=== PATIENT | female | born 2000 | race Caucasian/White ===

== ENCOUNTER 2020-10-04 17:04 | Observation (INO) | payer OTHER, SELFPAY ==
[2020-10-04 17:30] VITALS: BP 106/58; PULSE 88
[2020-10-04 17:45] VITALS: BP 101/61; PULSE 92
[2020-10-04 18:00] VITALS: BP 106/63; PULSE 91
[2020-10-04 18:06] LABS: Add Urine Microscopic? YES; Amorphous Sediment Urine Few; Appearance Urine Cloudy (Clear); Bacteria Urine Trace /hpf; Bilirubin Urine Negative (Negative); Blood Urine 1+ (Negative); Color Urine Yellow (Yellow); Glucose Urine UA Negative (Negative); Ketones Urine Negative (Negative); Leukocyte Esterase Ur 1+ LEU/UL (NEGATIVE); Mucus Urine Rare /lpf; Nitrate Urine Negative (Negative); Protein Urine Negative (Negative); Specific Grav Ur 1.015 (1.001-1.035); Squamous Epithelial Cell Urine Many /hpf (Few); Urobilinogen Urine Negative mg/dL (<2.0)
[2020-10-04 18:15] VITALS: BP 104/59; PULSE 82
--- NOTE | 2020-10-04 18:39 | P.PNOB_ITS ---
OB - Triage/Final Diagnosis Evaluation Laboratory results: Laboratory Tests 10/04/20 17:53 Urine Color Yellow Urine Appearance Cloudy H Urine pH 7.0 Ur Specific [place] 1.015 Urine Protein Negative Urine Glucose (UA) Negative Urine Ketones Negative Ur Blood (Man) 1+ H Urine Nitrate Negative Urine Bilirubin Negative Urine Urobilinogen Negative Ur Leukocyte Esterase 1+ H Urine RBC 6-10 H Urine WBC 7-9 H Ur Squamous Epith Cells Many H Amorphous Sediment Few H Urine Bacteria Trace Urine Mucus Rare Vital signs: Vital Signs - 24 hr 10/04/20 17:30 10/04/20 17:45 10/04/20 18:00 Pulse Rate 88 92 91 Blood Pressure 106/58 L 101/61 106/63 10/04/20 18:15 Pulse Rate 82 Blood Pressure 104/59 L Final Diagnosis (1) Abdominal pain: Code(s): R10.9 - Unspecified abdominal pain Status: Acute
== END 2020-10-04 18:40 | disposition home or self-care (01) ==
PROVIDERS: Admitting Provider Obstetrics & Gynecology; PCP Physician Assistant; Visit Provider Obstetrics & Gynecology
DX: O26.899 Other specified pregnancy related conditions, unspecified trimester (principal); R10.9 Unspecified abdominal pain; Z3A.00 Weeks of gestation of pregnancy not specified
CPT/HCPCS: 81001; 87086; G0378; G0379

== ENCOUNTER 2020-12-21 07:11 | Inpatient (IN) | payer BC, OTHER, SELFPAY ==
--- NOTE | 2020-12-20 11:26 | PM.IMHP ---
H&P: [facility] History of Present Illness Date/Time: 12/20/20 11:26 Chief Complaint: elective induction of labor in Term Narrative: Maris Villarreal is a 20 year old female 20 y/o with a history of a bicornuate uterus with prior successful vaginal delivery, BV, TV,GERD, GBS, UTI and anxiety/depression presenting for IOL at 39.3w. I explained her condition procedure and risks involved using Cervidil for 12 hours then Pitocin per protocol. I explained maternal or indications for delivery with risk involved including but not limited to bleeding infection injury to bladder bowel baby pelvic vessels DVT pneumonia wound infections UTI risk of anesthesia she understands all this and accepts and agrees to proceed. YES to epidural, baby boy, yes to circumcision,try to , private inquiry agent Dr. Lee or Mariah Fermin in [facility] undecided Review of Systems Review of Systems: All systems reviewed & are unremarkable except as noted in HPI and below Constitutional: Constitutional: Reports no additional constitutional complaints Eyes: Eyes: Reports no additional eye complaints ENT: Reports system reviewed and no additional complaints, except as documented Cardiovascular: Cardiovascular: Reports no additional cardiovascular complaints Respiratory: Respiratory: Reports no additional respiratory complaints Gastrointestinal: Gastrointestinal: Reports no additional gastrointestinal complaints Genitourinary: Genitourinary: Reports no additional female genitourinary complaints Musculoskeletal: Musculoskeletal: Reports no additional musculoskeletal complaints Integumentary/Breasts: Skin/Breast: Reports system reviewed and no additional complaints, except as docu Neurologic: Reports system reviewed and no additional complaints, except as documented Psychiatric: Psychiatric: Reports no additional psychiatric complaints Endocrine: Endocrine: Reports no additional endocrine complaints Hematologic/Lymphatic: Hematologic/Lymphatic: Reports no additional hematologic/lymphatic complaints Allergic/Immunologic: Allergic/Immunologic: Reports no additional allergic/immunologic complaints [facility] Past Medical History Medical History (Updated 12/20/20 @ 11:49 by Gerardo Maynard MD) Bicornate uterus complicating BV (bacterial vaginosis) HARSH (generalized anxiety disorder) GBS (group B Streptococcus carrier), +RV culture, currently History of hysterosalpingogram MDD (major depressive disorder) Smoker Staphylococcal infection Urogenital trichomoniasis UTI in Vaginal delivery [id number] # fetuses1 Fetus 1Full Term M 7 lbs 1 oz Vaginal Only Gestational age39.5 weeks.day Anesthesia[facility] Surgical History (Updated 12/20/20 @ 11:44 by Gerardo Maynard MD) History of tonsillectomy Family History Family History (Updated 12/20/20 @ 11:45 by Gerardo Maynard MD) Grandparent Hypertension Epilepsy Sibling ADD (attention deficit disorder) Other Acute myocardial infarction Diabetes mellitus Social History Social History (Updated 12/20/20 @ 11:46 by Gerardo Maynard MD) Smoking status: Former smoker Tobacco type: cigarettes Second hand tobacco smoke exposure: Yes Alcohol intake: never Substance use: never Substance use type: does not use Living arrangements: with family Occupation/Education: unemployed Gender identity (if verbalized by the patient): Female Sexual Orientation (if Verbalized by the Patient): Straight or Heterosexual Spiritual care concerns: No Agree to blood products: Yes Meds Home Medications and Allergies Home Medications Medication Instructions Recorded Confirmed Type folic acid 2 mg PO BID 12/03/20 12/03/20 History prenat.vits,brooke,[id number] 1 tablet PO DAILY 12/03/20 12/03/20 History [Prena
--- NOTE | 2020-12-20 11:34 | WPDHPUPDATE1 ---
History and Physical Update Update Date/Time: 12/21/20 05:34 History and Physical has been reviewed, including an updated exam of the patient. There are NO changes in the patient's condition. Risks, benefits, and alternatives have been discussed and questions answered. Patient agrees to proceed with procedure. Maris Villarreal is a 20 year old female 20 y/o with a history of a bicornuate uterus with prior successful vaginal delivery, BV, GERD, GBS, and depression presenting for IOL at 39.3w. I explained her condition procedure and risks involved using Cervidil for 12 hours then Pitocin per protocol. I explained maternal or indications for delivery with risk involved including but not limited to bleeding infection injury to bladder bowel baby pelvic vessels DVT pneumonia wound infections UTI risk of anesthesia she understands all this and accepts and agrees to proceed. YES to epidural, baby boy, yes to circumcision,try to , boom tender Dr. Lee or Mariah Fermin in [facility] undecided
--- NOTE | 2020-12-20 11:36 | P.HP_ITS ---
Obstetrics - Admit Note Admission Note: record reviewed. No pertinent additions to the history and/or any subsequent changes in the physical findings that are not consistent with the expected course of the were found. Additions to the history and/or subsequent changes in the physical findings follow. None. Maris Villarreal is a 20 year old female 20 y/o with a history of a bicornuate uterus with prior successful vaginal delivery, BV, GERD, GBS, and depression presenting for IOL at 39.3w. I explained her condition procedure and risks involved using Cervidil for 12 hours then Pitocin per protocol. I explained maternal or indications for delivery with risk involved including but not limited to bleeding infection injury to bladder bowel baby pelvic vessels DVT pneumonia wound infections UTI risk of anesthesia she understands all this and accepts and agrees to proceed. YES to epidural, baby boy, yes to circumcision,try to , commissioning engineer Dr. Lee or Mariah Fermin in [facility] undecided
[2020-12-21] VITALS (43 sets, daily range): BP systolic 86–129; BP diastolic 40–86; PULSE 71–103; TEMP 36.6–37; O2SAT 97–99; BMI 32.3
[2020-12-21 08:34] LABS: Basophils Absolute Auto 0.1 K/mm3 (0.0-0.1); Basophils Percent Auto 0.3 % (0.2-1.2); Eosinophils Absolute Auto 0.3 K/mm3 (0-0.3); Eosinophils Percent Auto 1.7 % (0-4.4); Hematocrit 32.8 % (37.0-47.0); Hemoglobin 10.4 g/dL (12.0-15.0); Immature Granulocyte Percent A 0.6 % (0-0.5); Lymphocytes Absolute Auto 2.92 K/mm3 (0.9-3.2); Lymphocytes Percent Auto 16.8 % (18.3-44.2); Mean Corpuscular HGB Conc 31.7 g/dl (32-36); Mean Corpuscular Hemoglobin 26.1 pg (26-34); Mean Corpuscular Volume 82.2 fl (80-100); Monocytes Absolute Auto 1.1 K/mm3 (0.1-0.6); Monocytes Percent Auto 6.4 % (2.6-8.5); Neutrophils Absolute Auto 12.9 K/mm3 (1.3-6.7); Neutrophils Percent Auto 74.2 % (45.5-73.1); Platelet Count Result 234 k/mm3 (150-375); Red Blood Count 3.99 M/mm3 (4.2-5.4); Red Cell Distribution Width 14.2 % (11.5-14.5); White Blood Count 17.4 K/mm3 (4.5-10.0)
[2020-12-21] MEDS: LACTATED RINGERS 1,000 ML 125 ML IV CONT (08:45)
[2020-12-21] MEDS: DINOPROSTONE 10 MG VAG INSERT VAGINAL (08:45)
[2020-12-21] MEDS: AMPICILLIN 2 GM/NS 100 ML 2 GM/100 ML BAG IVPB (08:46)
--- NOTE | 2020-12-21 08:55 | PM.OBPNLAB ---
Pain Control Date/time seen: 12/21/20 08:55 Comments: iol-cervidil Pelvic Exam Dilation (cm): 0 Effacement (%): 0 station: -3 Amniotic membrane status: Intact Contractions Monitor mode: External Contraction pattern: Irregular Contraction intensity: Mild Status status: Category l Assessment and Plan Assessment: induction ongoing Plan: continuous present management and other (gbs rx)
--- NOTE | 2020-12-21 09:21 | WPDANESEPP ---
Anes - Eval Pre Procedure Procedure: labor epidural Date/Time: 12/21/20 09:21 Preop Diagnosis: labor pain Pre Op Diagnosis: Induction of Labor Patient Data Age: 20 Gender: F Height: 5 ft 7 in Weight: 93.6 kg Last Vital Signs Pulse 89 12/21/20 09:00 BP 99/55 L 12/21/20 09:00 Allergies Allergy/AdvReac Type Severity Reaction Status Date / Time latex Allergy Itching Verified 12/03/20 12:42 nitrofurantoin Allergy Headache Verified 12/03/20 12:42 [From Macrobid] Home Medications Medication Instructions Recorded Confirmed Type folic acid 2 mg PO BID 12/03/20 12/03/20 History prenat.vits,brooke,[id number] 1 tablet PO DAILY 12/03/20 12/03/20 History [ #2] progesterone micronized 200 mg PO BID 12/03/20 12/03/20 History Laboratory Tests 12/21/20 12/21/20 08:18 08:18 WBC 17.4 K/mm3 H K/mm3 (4.5-10.0) RBC 3.99 M/mm3 L M/mm3 (4.2-5.4) Hgb 10.4 g/dL L g/dL (12.0-15.0) Hct 32.8 % L % (37.0-47.0) MCV 82.2 fl fl (80-100) MCH 26.1 pg pg (26-34) MCHC 31.7 g/dl L g/dl (32-36) RDW 14.2 % % (11.5-14.5) Plt Count 234 k/mm3 k/mm3 (150-375) MPV 12.0 fl H fl (7.4-10.4) Immature Gran % (Auto) 0.6 % H % (0-0.5) Neut % (Auto) 74.2 % H % (45.5-73.1) Lymph % (Auto) 16.8 % L % (18.3-44.2) [place] % (Auto) 6.4 % % (2.6-8.5) Eos % (Auto) 1.7 % % (0-4.4) Baso % (Auto) 0.3 % % (0.2-1.2) Lymph # (Auto) 2.92 K/mm3 K/mm3 (0.9-3.2) [place] # (Auto) 1.1 K/mm3 H K/mm3 (0.1-0.6) Eos # (Auto) 0.3 K/mm3 K/mm3 (0-0.3) Baso # (Auto) 0.1 K/mm3 K/mm3 (0.0-0.1) Abs Immat Gran (auto) 0.10 K/mm3 H K/mm3 (0.00-0.031) Absolute Neuts (auto) 12.9 K/mm3 H K/mm3 (1.3-6.7) Absolute Nucleated RBC 0.0 K/mm3 K/mm3 (0.0-0.012) Nucleated RBC % 0.0 % % (0.0-0.2) RPR Pending Patient hx anesthesia problems: none Family hx anesthesia problems: none PMFSH Past Medical History Medical History (Updated 12/20/20 @ 11:49 by Gerardo Maynard MD) Bicornate uterus complicating BV (bacterial vaginosis) HARSH (generalized anxiety disorder) GBS (group B Streptococcus carrier), +RV culture, currently History of hysterosalpingogram MDD (major depressive disorder) Smoker Staphylococcal infection Urogenital trichomoniasis UTI in Vaginal delivery [id number] # fetuses1 Fetus 1Full Term M 7 lbs 1 oz Vaginal Only Gestational age39.5 weeks.day AnesthesiaReg[facility] Surgical History (Updated 12/20/20 @ 11:44 by Gerardo Maynard MD) History of tonsillectomy Family History Family History (Updated 12/20/20 @ 11:45 by Gerardo Maynard MD) Grandparent Hypertension Epilepsy Sibling ADD (attention deficit disorder) Other Acute myocardial infarction Diabetes mellitus Social History Social History (Updated 12/20/20 @ 11:46 by Gerardo Maynard MD) Smoking status: Former smoker Tobacco type: cigarettes Second hand tobacco smoke exposure: Yes Alcohol intake: never Substance use: never Substance use type: does not use Living arrangements: with family Occupation/Education: unemployed Gender identity (if verbalized by the patient): Female Sexual Orientation (if Verbalized by the Patient): Straight or Heterosexual Spiritual care concerns: No Agree to blood products: Yes Exam Day of Procedure 12/21/20 09:21
--- NOTE | 2020-12-21 09:21 | LDADM ---
This patient, Sarkis Villarreal, was admitted to Labor/Delivery/Recovery 108 on 12/21/20 at 07:11. Plans for labor, pain management and were discussed with patient. Patient/family oriented to hospital policies and general routines including ID bracelet, bed and alarms, visiting hours, pain management, procedures, bathroom and other care routines, personal items, smoking policy, room service/diet and guest tray routines, security routines, call light, and visiting hours. Patient/Family are encouraged to report perceived risks to care and to ask questions if they do not understand what they are told or what they should do. See OBIX for further documentation.
[2020-12-21] MEDS: AMPICILLIN 1 GM/NS 50 ML 1 GM/50 ML BAG IVPB ×3 (12:07→20:40)
--- NOTE | 2020-12-21 16:37 | PM.OBPNLAB ---
Pain Control Date/time seen: 12/21/20 16:37 Pain control: tolerating well Comments: Cervidil due to come out at 20:45 a.m. then started on Pitocin Pelvic Exam Dilation (cm): 1 Effacement (%): 50 station: -3 Amniotic membrane status: Intact Contractions Monitor mode: External Contraction pattern: Irregular Contraction intensity: Mild Status status: Category l Assessment and Plan Assessment: induction ongoing Plan: continuous present management Comments: Cervidil due to come out at 8:45 p.m. and then was started on Pitocin
[2020-12-21] MEDS: OXYTOCIN 30 UNITS/NS 500 ML 30 UNITS/500 ML BAG IV CONT (20:03)
[2020-12-22] VITALS (47 sets, daily range): BP systolic 88–132; BP diastolic 45–81; PULSE 45–104; RESP 16–18; TEMP 36.4–37.4; O2SAT 95–100
[2020-12-22] MEDS: LACTATED RINGERS 1,000 ML 125 ML IV CONT
--- NOTE | 2020-12-22 00:27 | PM.OBPNLAB ---
Pain Control Date/time seen: 12/21/20 20:27 Pain control: tolerating well Comments: cervidil out Pelvic Exam Dilation (cm): 3 Effacement (%): 50 station: -3 Amniotic membrane status: Intact Contractions Monitor mode: External Contraction frequency: 5 Contraction duration: 45 Contraction pattern: Regular Contraction phase: Contraction Contraction intensity: Moderate Status status: Category l Assessment and Plan Assessment: active labor and induction ongoing Plan: continuous present management and begin patient augmentation Comments: pitocin then epidural
--- NOTE | 2020-12-22 00:29 | PM.OBPNLAB ---
Pain Control Date/time seen: 12/22/20 00:29 Pain control: tolerating well and epidural Pelvic Exam Dilation (cm): 5 Effacement (%): 80 station: -3 Amniotic membrane status: Bulging Comments: AROM copious amount clear fluid IUPC placed after placing fernandez catheter the nurse found hand presenting at cervix I confirm COMPOUND presentation hand in front of vertex and I was unable to reduce it at 5 cm dilation in fact the hand is trying to protrude through the cervical os! Contractions Monitor mode: Internal (iupc external fht) Contraction frequency: 5 Contraction duration: 45 Contraction pattern: Regular Contraction phase: Contraction Contraction intensity: Moderate Status status: Category l Assessment and Plan Assessment: active labor and other (COMPOUND HAND PRESENTATION) Plan: Comments: I explained condition procedure and risks involved Pt understands accepts and agrees to proceed
--- NOTE | 2020-12-22 01:41 | PM.PROC ---
Procedure Note - Detailed Date of procedure: 12/22/20 Pre-op diagnosis: Induction of Labor Term Bicornuate uterus GBS Compound presentation with hand in front of vertex Post-op diagnosis: same ( delivered viable male ) Procedure performed: primary low-transverse section with delivery of viable male infant and placenta Description of procedure: informed consent obtained patient taken to the operating room with epidural in place and dosed for section. Gill catheter was inserted the abdomen was prepped and the patient was draped in the usual fashion. A time-out was then performed. Antibiotic prophylaxis was given Ancef 2 g in addition to the previous doses for GBS prophylaxis. After testing for adequate anesthesia a Pfannenstiel incision was then made to the skin and then the abdomen was opened in layers using cautery with hemostasis excellent. The fascia was entered bilaterally and then undermined superior and inferior and then the rectus muscles were in the midline. The peritoneum was entered with electrocautery and extended bilateral a transverse incision was then made to the uterus and a Peon was used to separate myometrium. Digital dissection of the myometrial incision was followed by decompressing the compound presentation the hand had made it through the cervical os and then I was able to deliver the vertex via the abdominal incision with fundal pressure. Shoulders were delivered without difficulty baby was delivered and placed on the maternal abdomen where the nose and throat were bulb suction there was spontaneous respirations and cry the cord was then clamped and cut and the was handed to the nursery nurses in attendance. scores 8 and 9 at 1 and 5 minutes. The baby weighed 7 lb 11 oz a boy named Elroy. the cord gases were obtained and cord blood was obtained and then the placenta was then delivered intact with a three-vessel cord and sent to pathology. The uterus contracted well with Pitocin given intravenously 10 units. Blood clots membranes removed from the intrauterine cavity and both uterine horns were identified upon physical exam and hemostatic. The uterine incision was then repaired in 2 layers after the uterus was externalized with 0 Vicryl in a running interlocking fashion the 2nd being an imbricating stitch hemostasis excellent. Blood clots removed from the cul-de-sac both lateral gutters with irrigation being performed. The sponge needle instrument counts correct the uterus was returned to the peritoneal cavity and then the anterior peritoneum and rectus muscles were reapproximated with 0 Vicryl suture and a running fashion. The fascia was then closed with 2. Quill SRS system bilaterally with excellent approximation of the fascia. Hanna's fascia was reapproximated with 3 0 plain in a running fashion and then the skin was closed with absorbable vilma in a sequential fashion and then Dermabond was used to the skin and a Mepilex dressing was placed over the incision. The cyst counts were correct complications none specimens were sent to pathology the baby was taken to the nursery in stable condition the patient was taken to the recovery room stable condition Anesthesia: epidural Surgeon: Gerardo Maynard MD [employer] Installer: neurosurgical physician assistant x2 Estimated blood loss (mL): 560 IV fluids (mL): 2,000 Urine output (mL): 200 Drains: No Packing: No Pathology: yes ( placenta, cord gases, cord blood) Complications: None Condition: stable Disposition: floor Findings: bicornuate uterus hemostasis excellent tubes and ovaries normal upper abdomen clean Baby boy delivered at 1:08 a.m. spontaneous respirations and cry no observed abnormalities in the examination scores 8 9 weight 7 lb 11 oz boy's name is Elroy with the normal transition stable in the nursery Counts correct complications none
[2020-12-22] MEDS: KETOROLAC 30 MG/ML VIAL (*BKC) IV PUSH ×3 (01:45→16:23)
--- NOTE | 2020-12-22 01:55 | PM.OBPRVD ---
OB - Delivery Note Procedure Delivery date: 12/22/20 Procedure: Procedures Operation Date: 12/22/20 00:30 primary low-transverse section with delivery of viable male and placenta events: Labor Induction Intrapartal events: Other ( compound presentation with hand coming before the vertex into and through the cervical os) Induction method: per pitocin protocol and per cervidil protocol Delivery augmentation: rupture of membranes Delivery monitor: external FHT and internal uterine Route of delivery: Episiotomy description: None Laceration Description: None Specimen: Yes Quantitative Blood Loss (ml): 560 Anesthesia type: Epidural Disposition: floor Complications: none Narrative: see operative note [place] Baby Date of : 12/22/20 Time of : 01:08 Weeks of gestation at delivery: 39 Infant gender: Male ( Elroy) Weight (pounds): 7 Weight (ounces): 11 presentation: compound (hand) Placenta delivery description: Manual Removal and Normal Configuration cord vessel description: 3 Vessels score one minute: 8 score five minutes: 9 Narrative: see operative note
[2020-12-22] MEDS: OXYTOCIN 30 UNITS/NS 500 ML 30 UNITS/500 ML BAG 125 UNITS IV CONT (02:35)
[2020-12-22] MEDS: fentaNYL CITRATE INJ (*CRX) 100 MCG/2 ML VIAL 50 MCG IV PUSH (04:09)
--- NOTE | 2020-12-22 04:35 | OBPPTRN ---
Patient transferred to post room #285 via stretcher. Support person present. Oriented to unit, room, information board, rooming in, admission packet and security measures. Patient verbalizes understanding.
--- NOTE | 2020-12-22 05:09 | SUR.PHASEI ---
0425- Herman care done, chux pad, herman pads, and gown changed. Warm blankets applied. Pt states her pain is much better at this time. Gill catheter draining properly, SCD's in place. Belongings gathered; pt, , and belongings taken up to PP floor. Pt taken via stretcher.
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
[2020-12-22] MEDS: DEXTROSE 5%/0.45% SOD CHL 1,000 ML 125 ML IV CONT (08:10)
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
--- NOTE | 2020-12-22 13:31 | P.PNOB_ITS ---
OB - PN: Subj Subjective Date/time seen: 12/22/20 13:31 Patient comments: no complaints, pain well controlled, tolerating diet and flatus present [place] baby status: doing well [place] feeding status: exclusively bottle feeding OB - PN: Obj Data Labs CBC & Chem 7: 12/21/20 08:18 OB - PN A/P Assessment and Plan (1) Term delivered: Code(s): O80 - Encounter for full-term uncomplicated delivery Status: Acute (2) Delivery by section: Status: Acute (3) Compound presentation of fetus palpable vaginally: Code(s): O32.6XX0 - Maternal care for compound presentation, not applicable or unspe cified Status: Acute (4) Bicornate uterus complicating : Code(s): O34.00 - Maternal care for unspecified congenital malformation of uterus, unspecified trimester; Q51.3 - Bicornate uterus Status: Acute Plan day: 0 Plan: routine care, discharge home and follow up 6 weeks Time Spent With Patient Time: Total time spent is greater than 50% in coordination of care (as documented) at patient's floor/unit and/or counseling patient: Time with patient: less than 15 minutes Review of Systems Review of Systems: All systems reviewed & are unremarkable except as noted in HPI and below Exam Const: General: cooperative, healthy appearing, comfortable, no acute distress, well developed, alert, awake and Physically active Nutritional Appearance: average body habitus Orientation/consciousness: patient oriented x3 Limitations: no limitations HENMT: Head: normal to inspection Eyes: General: appearance normal, both eyes and all related structures Neck: Neck: normal visual inspection Chest: Chest palpation & inspection: normal inspection of the chest Breast/axilla inspection: normal inspection of the breasts Resp: Effort & Inspection: normal respiratory effort Auscultation: clear to auscultation bilaterally Cardio: Palpation: normal PMI Rate: regular rate Rhythm: regular rhythm Heart sounds: S1 normal heart sound present and S2 normal heart sound present GI: Inspection: normal to inspection and incision (Dressing dry and intact) GI Palp: Yes Soft to palpation Percussion: Yes normal to percussion Auscultation: normal bowel sounds : External Female Exam: normal external appearance Urinary Catheter: Urinary Catheter: patent and draining and urine clear Back/Spine/Pelvis: Back: no CVA tenderness Skin: General skin exam: normal color Neuro: General: patient oriented x3, tone normal, moves all extremities, Normal light touch and pain sensation and no meningeal signs Extrem: General: normal to inspection, full ROM, no clubbing, cyanosis or dipak ma and no calf tenderness Psych: Appearance: grossly normal Mental Status: mental status grossly normal Speech and movement: Normal speech and movement present Affect: normal affect Attitude: cooperative Thought process: Normal thought process present Thought content: Yes Normal thought content present Insight: Good insight present (Psych) Judgement: Good judgement present (Psych)
[2020-12-22] MEDS: MULTIVIT/MIN/PREN/FOL AC/IRON TABLET 1 TAB PO (16:23)
[2020-12-22] MEDS: DOCUSATE SODIUM 100 MG CAPSULE PO (19:17)
[2020-12-22] MEDS: HYDROcodone/acetaminophen (*CRX) 5-325 MG TABLET 1 TAB PO (20:02)
[2020-12-22] MEDS: IBUPROFEN 600 MG TABLET PO (21:33)
[2020-12-23] MEDS: IBUPROFEN 600 MG TABLET PO ×2 (04:21→11:07)
[2020-12-23 04:34] LABS: Basophils Percent Auto 0.3 % (0.2-1.2); Eosinophils Absolute Auto 0.2 K/mm3 (0-0.3); Eosinophils Percent Auto 0.9 % (0-4.4); Hematocrit 26.2 % (37.0-47.0); Hemoglobin 8.1 g/dL (12.0-15.0); Immature Granulocyte Absolute 0.08 K/mm3 (0.00-0.031); Immature Granulocyte Percent A 0.5 % (0-0.5); Lymphocytes Absolute Auto 2.68 K/mm3 (0.9-3.2); Mean Corpuscular HGB Conc 30.9 g/dl (32-36); Mean Corpuscular Hemoglobin 25.9 pg (26-34); Mean Corpuscular Volume 83.7 fl (80-100); Mean Platelet Volume 12.6 fl (7.4-10.4); Monocytes Absolute Auto 1.6 K/mm3 (0.1-0.6); Monocytes Percent Auto 10.4 % (2.6-8.5); Neutrophils Absolute Auto 11.2 K/mm3 (1.3-6.7); Neutrophils Percent Auto 70.9 % (45.5-73.1); Platelet Count Result 203 k/mm3 (150-375); Red Blood Count 3.13 M/mm3 (4.2-5.4); Red Cell Distribution Width 14.5 % (11.5-14.5); White Blood Count 15.8 K/mm3 (4.5-10.0)
[2020-12-23] MEDS: POLYSACCHARIDE IRON COMPLEX 150 MG CAPSULE PO (08:17)
[2020-12-23] MEDS: MULTIVIT/MIN/PREN/FOL AC/IRON TABLET 1 TAB PO (08:17)
[2020-12-23] MEDS: DOCUSATE SODIUM 100 MG CAPSULE PO (08:17)
[2020-12-23] MEDS: HYDROcodone/acetaminophen (*CRX) 10-325 MG TABLET 1 TAB PO (08:26)
[2020-12-23] MEDS: SIMETHICONE 80 MG TAB.CHEW PO (08:26)
[2020-12-23 09:19] VITALS: BP 98/52; PULSE 72; RESP 16; TEMP 36.8
--- NOTE | 2020-12-23 09:45 | WPDANLDPN2 ---
Anes-Prog Note L&D Date/Time: 12/23/20 09:45 Comfortable throughout: labor and section Neuraxial method: epidural Epidural/Spinal procedure site: clean & non-tender Neuro status: Neuro function grossly intact. Cardiovascular status: normal Respiratory status: normal Airway patency: baseline Mental status: baseline Post-Op hydration status: normal Vital Signs: Last Vital Signs Temp 36.8 C 12/23/20 09:19 Pulse 72 12/23/20 09:19 Resp 16 12/23/20 09:19 BP 98/52 L 12/23/20 09:19 Pulse Ox 98 12/22/20 23:55 Pain score (VAS): no complaints I/O: Intake & Output 12/22/20 12/23/20 12/23/20 23:59 07:59 15:59 Intake Total 400 Output Total 900 Balance -500 Post-procedural complaints: none Patient feedback: Patient satisfied with anesthetic care.
--- NOTE | 2020-12-23 09:46 | WPDANLDNPN2 ---
Anes-Prog Note L&D-Neuraxial Date/Time: 12/23/20 09:46 Neuraxial medications: epidural PF morphine Patient feedback: Patient satisfied with post-operative pain management.
[2020-12-23 11:00] LABS: Rapid Plasma Reagin Non-Reactive (NonReactive)
[2020-12-23] MEDS: HYDROcodone/acetaminophen (*CRX) 5-325 MG TABLET 1 TAB PO (11:07)
--- NOTE | 2020-12-23 13:03 | PM.OBDSVD ---
DS: Admitting Diagnosis Admitting Diagnosis Admitting Diagnosis: term Elective induction of labor Bicornuate uterus GBS carrier Compound presentation hand in front of vertex into cervical os DS: Discharge Diagnosis Discharge Diagnosis (1) Term delivered: Code(s): O80 - Encounter for full-term uncomplicated delivery Status: Acute (2) Compound presentation of fetus palpable vaginally: Code(s): O32.6XX0 - Maternal care for compound presentation, not applicable or unspecified Status: Acute (3) Encounter for elective induction of labor: Code(s): Z34.90 - Encounter for supervision of normal , unspecified, unspecified trimester Status: Acute (4) GBS (group B Streptococcus carrier), +RV culture, currently : Code(s): O99.820 - Streptococcus B carrier state complicating Status: Acute (5) Bicornate uterus complicating : Code(s): O34.00 - Maternal care for unspecified congenital malformation of uterus, unspecified trimester; Q51.3 - Bicornate uterus Status: Acute OB - DS: Summary Hospital Course Time spent discussing smoking cessation with patient: 3 to 10 minutes OB Procedures : Ultrasound OB Procedures Intrapartum: ( primary) low cervical, transverse and GBS prophylaxis OB Procedures: : Antibiotics Peripartum Data Infant Delivery Method: Section ( primary low-transverse) Laceration Description: None Episiotomy description: None Procedures: Procedures Operation Date: 12/22/20 00:30 primary low-transverse section with delivery of viable male and placenta complications: none 1: Gender: Male (Elroy) Disposition of : home Status at Discharge Functional status at discharge: independent ambulation Overall status at discharge: patient is back to baseline Time Spent with Patient Time attestation: Total time spent providing and/or coordinating discharge services: Time spent: Less than 30 minutes Exam Const: General: cooperative, healthy appearing, comfortable, no acute distress, well developed, alert, awake and Physically active Nutritional Appearance: average body habitus and well nourished Orientation/consciousness: patient oriented x3 Limitations: no limitations HENMT: Head: normal to inspection Eyes: General: appearance normal, both eyes and all related structures Neck: Neck: normal visual inspection and full ROM Chest: Chest palpation & inspection: normal inspection of the chest Breast/axilla inspection: normal inspection of the breasts Resp: Effort & Inspection: normal respiratory effort Auscultation: clear to auscultation bilaterally Cardio: Palpation: normal PMI Rate: regular rate Rhythm: regular rhythm Heart sounds: S1 normal heart sound present and S2 normal heart sound present GI: Inspection: normal to inspection and incision ( dry and intact) GI Palp: Yes Soft to palpation Auscultation: normal bowel sounds : External Female Exam: normal external appearance Bimanual exam- vagina & uterus: non-tender Urinary Catheter: Urinary Catheter: urine clear Back/Spine/Pelvis: Back: no CVA tenderness Skin: General skin exam: normal color Neuro: General: patient oriented x3, gait normal, tone normal, moves all extremities, Normal light touch and pain sensation, no meningeal signs and no focal motor deficits Extrem: General: normal to inspection, full ROM, no clubbing, cyanosis or edema and no calf tenderness Psych: Appearance: grossly normal Mental Status: mental status grossly normal Speech and movement: Normal speech and movement present Affect: normal affect Attitude: cooperative Thought content: Yes Normal thought content present Insight: Good insight present (Psych) Judgement: Good judgement present (Psych) DS: Data Data Completed and Pending Labs on day of discharge: Labs from [facility]
[2020-12-24 10:48] VITALS: BP 103/56; PULSE 87; RESP 20; TEMP 36.6; O2SAT 100
== END 2020-12-23 11:45 | disposition home or self-care (01) | DRG 788 ==
LOC: ANHLDR 12-22 02:15 → ANHOB2 12-22 04:41
PROVIDERS: Admitting Provider Obstetrics & Gynecology; Family Provider Pediatrics Adolescent Medicine; PCP Physician Assistant; Visit Provider Obstetrics & Gynecology
PROC: 10D00Z1 Extraction of Products of Conception, Low, Open Approach (ICD-10-PCS; CPT 59514; principal; 2020-12-22 00:30)
DX: O34.03 Maternal care for unspecified congenital malformation of uterus, third trimester (principal); Q51.3 Bicornate uterus; O99.824 Streptococcus B carrier state complicating childbirth; O32.6XX0 Maternal care for compound presentation, not applicable or unspecified; O32.2XX0 Maternal care for transverse and oblique lie, not applicable or unspecified; Z3A.39 39 weeks gestation of pregnancy; Z37.0 Single live birth; Z87.891 Personal history of nicotine dependence
CPT/HCPCS: 36415; 85025; 86592; 86850; 86900; 86901; 88307; A9270; J0131; J0290; J1885; J2175; J2274; J2405; J2590; J2795; J3010; J7120

== ENCOUNTER 2023-11-10 16:55 | Observation (INO) | payer BC, MEDICAID, SELFPAY ==
[2023-11-10] VITALS (9 sets, daily range): BP systolic 98–109; BP diastolic 55–65; PULSE 78–93; BMI 24.0
--- NOTE | 2023-11-10 17:22 | OBADM ---
This patient, Sarkis Villarreal, admitted to the OB room [facility] Post [facility] for observation. Patient/family oriented to hospital policies and general routines including ID bracelet, bed and alarms, visiting hours, pain management, procedures, bathroom and other care routines, personal items, smoking policy, room service/diet, and visiting hours. Patient/Family are encouraged to report perceived risks to care and to ask questions if they do not understand what they are told or what they should do.
--- NOTE | 2023-11-10 17:51 | PC.NURSE ---
1744: Ob paged. 1745: Dr. Zach Lemos responded to page. RN informed OB of patient's complaints of cramping. RN informed OB that patient has marked 3 cramps in a 15 min time frame, blood pressures are normal, and FHT are intermittent but Category 1. Orders to send a UA, and perform a SVE. Orders to discharge patient if urine is clean and cervix is closed and thick.
[2023-11-10 18:28] LABS: Appearance Urine Cloudy (Clear); Bacteria Urine 2+ /hpf; Bilirubin Urine Negative (Negative); Blood Urine Negative (Negative); Color Urine Yellow (Yellow); Glucose Urine UA Negative (Negative); Ketones Urine Negative (Negative); Leukocyte Esterase Ur 1+ LEU/UL (NEGATIVE); Nitrate Urine Negative (Negative); Non Pathogenic Casts 0-2; Protein Urine Negative (Negative); RBC Urine 0-2 /hpf (0-2); Squamous Epithelial Cell Urine Many /hpf (Few); Urobilinogen Urine 0.2 mg/dL (<2.0); WBC Urine 21-50 /hpf (0-3)
[2023-11-10 18:35] LABS: Add Urine Microscopic? YES
--- NOTE | 2023-11-11 12:11 | P.PNOB_ITS ---
OB - Triage/Final Diagnosis Visit Information Date of evaluation: 11/10/23 Reason for evaluation: decreased movement Comments/Additional reasons for admission: I have assessed the risk for this patient, Sarkis Villarreal, and determined that she would benefit from observation care. Evaluation Laboratory results: Laboratory Tests 11/10/23 17:53 Urine Color Yellow Urine Appearance Cloudy H Urine pH 7.0 Ur Specific [place] 1.010 Urine Protein Negative Urine Glucose (UA) Negative Urine Ketones Negative Ur Blood (Man) Negative Urine Nitrate Negative Urine Bilirubin Negative Urine Urobilinogen 0.2 Ur Leukocyte Esterase 1+ H Urine RBC 0-2 Urine WBC 21-50 Ur Squamous Epith Cells Many H Urine Bacteria 2+ H Urine Casts 0-2 Vital signs: Vital Signs - 24 hr 11/10/23 17:18 11/10/23 17:30 11/10/23 17:45 Pulse Rate 88 88 81 Blood Pressure 109/65 98/58 L 102/56 L Blood Pressure [Right Arm] Oxygen Delivery 11/10/23 18:00 11/10/23 18:15 11/10/23 18:30 Pulse Rate 87 78 83 Blood Pressure 107/62 103/55 L 103/58 L Blood Pressure [Right Arm] Oxygen Delivery 11/10/23 18:45 11/10/23 19:00 11/10/23 17:20 Pulse Rate 93 79 Blood Pressure 102/62 108/61 Blood Pressure [Right Arm] Oxygen Delivery Room Air 11/10/23 18:03 Pulse Rate 87 Blood Pressure Blood Pressure [Right Arm] 107/62 Oxygen Delivery
== END 2023-11-10 19:15 | disposition home or self-care (01) ==
PROVIDERS: Admitting Provider Obstetrics & Gynecology; Visit Provider Obstetrics & Gynecology
DX: O36.8120 Decreased fetal movements, second trimester, not applicable or unspecified (principal); O26.892 Other specified pregnancy related conditions, second trimester; R10.9 Unspecified abdominal pain; Z3A.23 23 weeks gestation of pregnancy
CPT/HCPCS: 59025; 81001; 87086; 87088; G0378; G0379

== ENCOUNTER 2024-01-22 20:08 | Observation (INO) | payer BC, MEDICAID, SELFPAY ==
[2024-01-22 20:38] VITALS: BP 120/68; PULSE 101
[2024-01-22 20:45] VITALS: BP 131/70; PULSE 103
[2024-01-22 21:00] VITALS: BP 125/75; PULSE 94
[2024-01-22 21:15] VITALS: BP 120/70; PULSE 106
[2024-01-22 21:30] VITALS: BP 113/67; PULSE 93
[2024-01-22 21:59] VITALS: BMI 26.6
[2024-01-22] MEDS: FLUCONAZOLE 100 MG TABLET PO (22:10)
--- NOTE | 2024-02-20 20:29 | PM.OBTRLD ---
OB - Triage/Final Diagnosis Visit Information Comments/Additional reasons for admission: I have assessed the risk for this patient, Loretonixon Villarreal, and determined that she would benefit from observation care. Final Diagnosis (1) Vaginal bleeding: Code(s): N93.9 - Abnormal uterine and vaginal bleeding, unspecified Status: Acute
== END 2024-01-22 22:15 | disposition home or self-care (01) ==
PROVIDERS: Admitting Provider Obstetrics & Gynecology; Visit Provider Obstetrics & Gynecology
DX: O46.93 Antepartum hemorrhage, unspecified, third trimester (principal); Z3A.33 33 weeks gestation of pregnancy
CPT/HCPCS: A9270; G0378; G0379